=== PATIENT | male | born 1975 | race African-American/Black ===

== ENCOUNTER 2017-01-30 06:14 | Emergency (ER) | payer MEDICAID, MEDICARE ==
[~2017-01-30] VITALS: Ht 172.7 cm; Wt 131.0 kg
[2017-01-30 06:25] VITALS: BP 140/100
[2017-01-30] MEDS ORDERED: LIDOCAINE HCL/EPINEPHRINE 1%-EPI 1:100,000 30 ML VIAL INFIL ONE (08:00)
[2017-01-30] MEDS ORDERED: POVIDONE-IODINE 10% TOPICAL SOLN 240ML TOP ONE (08:00)
[2017-01-30] MEDS ORDERED: LIDOCAINE HCL 1%/EPI 1:200,000 30 ML VIAL IJ NR (08:30)
== END 2017-01-30 10:10 | disposition home or self-care (01) ==
LOC: ER 07:22
DX: L02.212 Cutaneous abscess of back [any part, except buttock and flank] (principal); F12.10 Cannabis abuse, uncomplicated
CPT/HCPCS: 10060; 99283; A4246; Z7610

== ENCOUNTER 2017-02-01 07:48 | Emergency (ER) | payer MEDICARE ==
[~2017-02-01] VITALS: Ht 172.7 cm; Wt 119.0 kg
[2017-02-01] MEDS ORDERED: ANTIBIOTICS (08:20)
[2017-02-01 08:21] VITALS: BP 141/85
== END 2017-02-01 11:13 | disposition home or self-care (01) ==
LOC: ER 09:55
DX: Z48.01 Encounter for change or removal of surgical wound dressing (principal); F17.200 Nicotine dependence, unspecified, uncomplicated; F12.10 Cannabis abuse, uncomplicated
CPT/HCPCS: 99283